=== PATIENT | male | born 1980 | race Caucasian/White ===

== ENCOUNTER 2020-09-03 21:38 | Inpatient (IN) | payer OTHER ==
[~2020-09-03] VITALS: Ht 182.9 cm; Wt 83.5 kg
[2020-09-03 22:11] LABS: HEMOGLOBIN 13.6 gm/dl (14.0-17.5); RED BLOOD COUNT 4.25 M/UL (4.20-5.50)
[2020-09-03 22:39] LABS: BUN/CREATININE RATIO 17 (0-10)
[2020-09-03 23:47] LABS: HEMOGLOBIN 12.7 gm/dl (14.0-17.5); RED BLOOD COUNT 4.05 M/UL (4.20-5.50)
[2020-09-04 00:06] LABS: WHITE BLOOD COUNT 50.8 K/UL (4.5-11.0)
[2020-09-04 04:29] LABS: HEMOGLOBIN 13.3 gm/dl (14.0-17.5); RED BLOOD COUNT 4.12 M/UL (4.20-5.50)
[2020-09-04 04:42] LABS: WHITE BLOOD COUNT 57.3 K/UL (4.5-11.0)
[2020-09-04] MEDS ORDERED: BUPRENORPHIN-N1 EACH PO (09:09)
[2020-09-04 17:12] LABS: ACINETOBACTER BAUMANNII Not Detected (Negative); CANDIDA ALBICANS Not Detected (Negative); CANDIDA KRUSEI Not Detected (Negative); CANDIDA TROPICALIS Not Detected (Negative); ENTEROCOCCUS Not Detected (Negative); ESCHERICHIA COLI Not Detected (Negative); HAEMOPHILUS INFLUENZAE Not Detected (Negative); KLEBSIELLA OXYTOCA Not Detected (Negative); KLEBSIELLA PNEUMONIAE Not Detected (Negative); KPC-CARBAPENEM-RESISTANCE GENE Not Detected (Negative); PROTEUS Not Detected (Negative); PSEUDOMONAS AERUGINOSA Not Detected (Negative); SERRATIA MARCESANS Not Detected (Negative); STAPHYLOCOCCUS Not Detected (Negative); STAPHYLOCOCCUS AUREUS Not Detected (Negative); STREP AGALACTIAE (GROUP B) Not Detected (Negative); STREP PYOGENES (GROUP A) Not Detected (Negative); mecA (METHICILLIN RESIST GENE Not Detected (Negative); vanA/B (VANCOMYCIN RESIST GENE Not Detected (Negative)
[2020-09-04 18:28] LABS: STREPTOCOCCUS DETECTED (Negative)
[2020-09-05 03:41] LABS: HEMOGLOBIN 11.4 gm/dl (14.0-17.5); RED BLOOD COUNT 3.82 M/UL (4.20-5.50)
[2020-09-05 03:42] LABS: WHITE BLOOD COUNT 53.7 K/UL (4.5-11.0)
[2020-09-05 10:21] LABS: HBSAG SCREEN Negative (Negative); HEP A AB, IGM Negative (Negative); HEP B CORE AB, IGM Negative (Negative); HEP C VIRUS AB >11.0 (0.0-0.9)
[2020-09-05 14:29] LABS: HEMATOCRIT 36.6 % (37.5-51.0)
== END 2020-09-05 12:54 | disposition left against medical advice (07) | DRG 871 ==
LOC: ER1 21:38 → CDU 23:19 → CCU 09-04 08:26
PROVIDERS: Family Medicine; Internal Medicine; Registered Nurse; ADMIT Internal Medicine
PROC: B24BZZ4 Ultrasonography of Heart with Aorta, Transesophageal (ICD-10-PCS; principal; 2020-09-04)
DX: A40.8 Other streptococcal sepsis (principal); R65.21 Severe sepsis with septic shock; N39.0 Urinary tract infection, site not specified; N17.9 Acute kidney failure, unspecified; B17.8 Other specified acute viral hepatitis; F17.210 Nicotine dependence, cigarettes, uncomplicated; F19.10 Other psychoactive substance abuse, uncomplicated; I95.89 Other hypotension; D72.823 Leukemoid reaction; R59.1 Generalized enlarged lymph nodes; Z90.49 Acquired absence of other specified parts of digestive tract
CPT/HCPCS: ECHO; 36415; 71045; 80053; 80074; 80307; 81001; 81206; 81207; 82550; 82553; 82607; 82747; 83605; 83615; 83874; 83921; 84132; 84484; 84550; 85007; 85025; 85027; 87040; 87077; 87086; 87150; 87186; 93005; 93306; 99285; J1644; J1720; J2543; J3370; J7030; J7070; U0002